=== PATIENT | female | born 1950 | race Caucasian/White ===

== ENCOUNTER 2021-03-06 17:18 | Emergency (ER) | payer OTHER ==
[2021-03-06] MEDS ORDERED: NA CHLORIDE 0.9% 1,000 ML ONE (18:29)
[2021-03-06 18:31] LABS: Urine Blood Trace-lysed (Negative); Urine Glucose Negative (Negative); Urine Protein Negative (Negative); Urine pH 6.5 (5.0-7.0)
[2021-03-06 18:46] LABS: Absolute Lymphocytes (CBC) 1.6 K/uL (0.7-4.9); Basophils % 0.5 % (0-1.3); Hematocrit 43.7 % (36.0-45.0); Lymphocytes % 21.8 % (15.3-44.8); MPV 8.9 fL (7.6-11.3); RBC Red Blood Cell Count 4.84 M/uL (3.86-4.86)
[2021-03-06 19:01] LABS: Albumin 3.5 g/dL (3.4-5.0); Bilirubin Direct 0.1 mg/dL (0-0.2); Bilirubin Total 0.5 mg/dL (0.2-1.0); Potassium 3.4 mmol/L (3.5-5.1); Protein, Total 7.5 g/dL (6.4-8.2)
--- NOTE | 2021-03-06 19:21 | RAD REPORT ---
EXAM DESCRIPTION: CT - Abdomen Pelvis W Contrast - 03/06/2021 6:56 pm CLINICAL HISTORY: ABD PAIN COMPARISON: CT imaging March 2019 TECHNIQUE: Biphasic, helical CT imaging of the abdomen and pelvis was performed following 100 ml non -ionic IV contrast. No oral contrast given. All CT scans are performed using dose optimization technique as appropriate and may include automated exposure control or mA/KV adjustment according to patient size. FINDINGS: No suspicious findings in the lung bases. The liver, spleen, and pancreas show no suspicious findings. Gallbladder and biliary tree are also wi thout suspicious finding. Symmetric renal function is seen with no hydronephrosis or suspicious renal mass. No pyelonephritis o r acute parenchymal process. A few small renal cysts are present with no suspicious characteristics o r significant interval changes. Partially filled urinary bladder shows no suspicious finding. No blad jaleel abnormalities. No adrenal abnormalities. Uterus and ovaries without suspicious finding. No gastric dilatation or wall thickening. No acute small bowel finding. Appendix is not well defined. No direct or indirect evidence for acute appendicitis. Patient has prominent diverticulosis. Patient has colon wall thickening involving the descending, and sigmoid portions of the colon. There is minimal exaggerated enhancement in cecum. Trace amount of st randing or edema seen in the adjacent fat. No mass lesions seen. Focal narrowing in the mid transvers e colon is believed to be a peristalsis affect rather than mass. This can be evaluated on follow-up b arium enema or colonoscopy. No free air or pneumatosis. No abnormal free fluid collection. No hernia, mass or bulky lymphadenop athy. No suspicious bony findings. IMPRESSION: Mild pancolitis pattern with a [id number]-[id number] component involving the distal descendin g and proximal sigmoid. No free air, abscess or surgically emergent component.
[2021-03-06] MEDS ORDERED: METRONIDAZOLE 500mg IVPB 500 MG/100 ML BAG IV ONE (20:40)
[2021-03-06] MEDS ORDERED: levoFLOXacin 750 MG TAB ONE (20:40)
--- NOTE | 2021-03-06 20:47 | EDPHYS ---
Physician Documentation [facility] Name: Shilpa Neville Age: 70 yrs Sex: Female : 1950 Arrival Date: 03/06/2021 Time: 17:19 Bed 13 Private MD: Joseph Chacon V ED Physician Franki Church HPI: 03/06 17:49 This 70 yrs old Female presents to ER via Ambulatory with complaints of jmm Fever, Diarrhea, Abdominal Pain. 17:49 The patient presents to the emergency department with diarrhea. Onset: The jmm symptoms/episode began/occurred gradually. Possible causes: antibiotics, macrolide, Zithromax. The symptoms are aggravated by nothing. The symptoms are alleviated by nothing. Associated signs and symptoms: Pertinent positives: abdominal pain, fever. The patient has not experienced similar symptoms in the past. Historical: - Allergies: 17:37 Gluten Protein; jd3 - Home Meds: 17:37 anastrozole oral oral [Active]; Trintellix 5 mg oral tab [Active]; jd3 benazepril-hydrochlorothiazide oral oral [Active]; trazodone Oral [Active]; melatonin Oral [Active]; - PMHx: 17:37 breast cancer; jd3 - PSHx: 17:37 Lumpectomy; Appendectomy; jd3 - Immunization history:: Adult Immunizations up to date. - Social history:: Smoking status: Patient denies any tobacco usage or history of. ROS: 17:49 Constitutional: Negative for fever, chills, and weight loss, Cardiovascular: Negative jmm for chest pain, palpitations, and edema, Respiratory: Negative for shortness of breath, cough, wheezing, and pleuritic chest pain. 17:49 Abdomen/GI: Positive for abdominal pain, diarrhea. 17:49 All other systems are negative. Exam: 17:49 Constitutional: This is a well developed, well nourished patient who is awake, alert, jmm and in no acute distress. Head/Face: atraumatic. Eyes: EOMI, no conjunctival erythema appreciated ENT: Moist Mucus Membranes Neck: Trachea midline, Supple Chest/axilla: Normal chest wall appearance and motion. Cardiovascular: Regular rate and rhythm. No edema appreciated Respiratory: Normal respirations, no respiratory distress appreciated 17:49 Back: Normal ROM Skin: General appearance color normal MS/ Extremity: Moves all extremities, no obvious deformities appreciated, no edema noted to the lower extremities Neuro: Awake and alert, normal gait Psych: Behavior is normal, Mood is normal, Patient is cooperative and pleasant 17:49 Abdomen/GI: Inspection: abdomen appears normal, Bowel sounds: normal, Palpation: soft, mild abdominal tenderness, in all quadrants. Vital Signs: 17:37 BP 154 / 77; Pulse 61; Resp 17 S; Temp 99.5(TE); Pulse Ox 98% on R/A; Weight 55.34 kg jd3 (R); Height 5 ft. 3 in. (160.02 cm) (R); Pain 4/10; 17:56 BP 149 / 66; Pulse 60; Resp 16; Pulse Ox 100% on R/A; vg1 20:29 BP 163 / 73; Pulse 66; Resp 14; Pulse Ox 100% ; vg1 21:00 BP 154 / 72; Pulse 68; Resp 16; Pulse Ox 100% on R/A; vg1 17:37 Body Mass Index 21.61 (55.34 kg, 160.02 cm) jd3 MDM: 17:[address] [facility] 20:04 Data reviewed: vital signs, nurses notes. Counseling: I had a detailed discussion with jennifer the patient and/or guardian regarding: the historical points, exam findings, and any diagnostic results supporting the discharge/admit diagnosis, lab results, radiology results, the need for outpatient follow up, to return to the emergency department if symptoms worsen or persist or if there are any questions or concerns that arise at home. ED course: Labs, ct imagings, recent abx use. Most likely c.diff. will treat with oral abx. Patient advised to follow up with pcp/gi for further evaluation. Patient is otherwise given strict return precautions. Patient understood and agrees with the plan of care. . 03/06 18:01 Order name: Basic Metabolic Panel; Complete Time: 19:[address] [facility] 03/06 18:01 Order name: CBC with Diff; Complete Time: 19:[address] [facility] 03/06 18:01 Order name: Hepatic Function; Complete Time: 19:[address] [facility] 03/06 18:01 Order name: Lipase; Complete Time: 19:[address] [facility] 03/06 18:01 Order name: CT Abd/Pelvis - IV Contrast Only; Complete Time: 19:[address] [facility] 03/06 18:30 Order name: Urine Dipstick-Ancillary; Complete Time: 18:46 [facility] 03/06 18:01 Order name: IV Saline Lock; Complete Time: 18:[address] [facility] 03/06 18:01 Order name: Labs collected and sent; Complete Time: 18:[address] [facility] 03/06 18:01 Order name: Urine Dipstick-Ancillary (obtain specimen); Complete Time: 18:[address] [facility] Administered Medications: 18:34 Drug: NS 0.9% 1000 ml Route: IV; Rate: 1 bolus; Site: left antecubital; vg1 19:30 Follow up: IV Status: Completed infusion; IV Intake: 1000ml vg1 20:21 Drug: LevaQUIN (levofloxacin) 750 mg Route: PO; vg1 21:00 Follow up: Response: No adverse reaction vg1 20:26 Drug: Flagyl (metroNIDAZOLE) 500 mg Volume: 100 ml; Route: IVPB; Rate: 200 ml/hr; vg1 Infused Over: 30 mins; Site: left antecubital; 21:00 Follow up: Response: No adverse reaction vg1 21:00 Follow up: IV Status: Completed infusion; IV Intake: 100ml vg1 Disposition: 03/06/21 20:46 Discharged to Home. Impression: Pancolitis. - Condition is Stable. - Discharge Instructions: Clostridium Difficile Infection. - Prescriptions for Flagyl 500 mg Oral Tablet - take 1 tablet by ORAL route every 6 hours for 10 days; 40 tablet. Levaquin 500 mg Oral Tablet - take 1 tablet by ORAL route once daily for 7 days; 7 tablet. - Medication Reconciliation Form, Thank You Letter, Antibiotic Education, Prescription Opioid Use form. - Follow up: Benoit Curry MD; When: 2 - 3 days; Reason: Recheck today's complaints, Continuance of care, Re-evaluation by your physician. - Notes: Please take probiotics such as Athletic Greens daily. Please send a stool sample to the lab for further evaluation. Please return to the ER if you develop increased pain, vomiting, or any other concerning symptoms. Signatures: Dispatcher [employer] [facility] Noé Caballero PA PA jmm Davies, Jonathon, RN RN Madonna Rosen RN RN vg1 Corrections: (The following items were deleted from the chart) 21:57 20:46 03/06/2021 20:46 Discharged to Home. Impression: Pancolitis. Condition is Stable. vg1 Forms are Medication Reconciliation Form, Thank You Letter, Antibiotic Education, Prescription Opioid Use. Follow up: Benoit Curry; When: 2 - 3 days; Reason: Recheck today's complaints, Continuance of care, Re-evaluation by your physician. jennifer
--- NOTE | 2021-03-06 20:47 | ER ---
Nurse's Notes [facility] Name: Shilpa Neville Age: 70 yrs Sex: Female : 1950 Arrival Date: 03/06/2021 Time: 17:19 Bed 13 Private MD: Joseph Chacon V Diagnosis: Pancolitis Presentation: 03/06 17:33 Chief complaint: Patient states: "N/V/D since Sunday. I was also having fever. Now I am jd3 still having diarrhea and all my virus symptoms gone, but I do have a history of diverticulosis.". Coronavirus screen: At this time, the client does not indicate any symptoms associated with coronavirus-19. Ebola Screen: Patient negative for fever greater than or equal to 101.5 degrees Fahrenheit, and additional compatible Ebola Virus Disease symptoms. Initial Sepsis Screen: Does the patient meet any 2 criteria? No. Patient's initial sepsis screen is negative. Does the patient have a suspected source of infection? No. Patient's initial sepsis screen is negative. Risk Assessment: Do you want to hurt yourself or someone else? Patient reports no desire to harm self or others. Onset of symptoms was February 28, 2021. 17:33 Method Of Arrival: Ambulatory [facility] 17:33 Acuity: DENISE 3 jd3 Historical: - Allergies: 17:37 Gluten Protein; jd3 - Home Meds: 17:37 anastrozole oral oral [Active]; Trintellix 5 mg oral tab [Active]; jd3 benazepril-hydrochlorothiazide oral oral [Active]; trazodone Oral [Active]; melatonin Oral [Active]; - PMHx: 17:37 breast cancer; jd3 - PSHx: 17:37 Lumpectomy; Appendectomy; jd3 - Immunization history:: Adult Immunizations up to date. - Social history:: Smoking status: Patient denies any tobacco usage or history of. Screenin:56 Abuse screen: Denies threats or abuse. Nutritional screening: No deficits noted. vg1 Tuberculosis screening: No symptoms or risk factors identified. Fall Risk No fall in past 12 months (0 pts). No secondary diagnosis (0 pts). IV access (20 points). Ambulatory Aid- None/Bed Rest/Nurse Assist (0 pts). Gait- Normal/Bed Rest/Wheelchair (0 pts) Mental Status- Oriented to own ability (0 pts). Total Callahan Fall Scale indicates No Risk (0-24 pts). Assessment: 17:55 General: Appears in no apparent distress. comfortable, Behavior is calm, cooperative. vg1 Pain: Complains of pain in right upper quadrant, left upper quadrant and right lower quadrant Pain currently is 4 out of 10 on a pain scale. Pain began about a week ago. Neuro: Level of Consciousness is awake, alert, obeys commands, Oriented to person, place, time, situation. Cardiovascular: Patient's skin is warm and dry. Respiratory: Airway is patent Respiratory effort is even, unlabored. GI: Abdomen is flat, non-distended, Bowel sounds present X 4 quads. Abdomen is tender to palpation in right upper quadrant, left upper quadrant and right lower quadrant Reports diarrhea. : No signs and/or symptoms were reported regarding the genitourinary system. EENT: No signs and/or symptoms were reported regarding the EENT system. Derm: Skin is intact, is healthy with good turgor. Musculoskeletal: Circulation, motion, and sensation intact. 19:10 Reassessment: Patient appears in no apparent distress at this time. No changes from vg1 previously documented assessment. Patient and/or family updated on plan of care and expected duration. Pain level reassessed. Patient is alert, oriented x 3, equal unlabored respirations, skin warm/dry/pink. 20:29 Reassessment: Patient appears in no apparent distress at this time. Patient and/or vg1 family updated on plan of care and expected duration. Pain level reassessed. Patient is alert, oriented x 3, equal unlabored respirations, skin warm/dry/pink. 21:56 Reassessment: Patient appears in no apparent distress at this time. Patient and/or vg1 family updated on plan of care and expected duration. Pain level reassessed. Patient is alert, oriented x 3, equal unlabored respirations, skin warm/dry/pink. Vital Signs: 17:37 BP 154 / 77; Pulse 61; Resp 17 S; Temp 99.5(TE); Pulse Ox 98% on R/A; Weight 55.34 kg jd3 (R); Height 5 ft. 3 in. (160.02 cm) (R); Pain 4/10; 17:56 BP 149 / 66; Pulse 60; Resp 16; Pulse Ox 100% on R/A; vg1 20:29 BP 163 / 73; Pulse 66; Resp 14; Pulse Ox 100% ; vg1 21:00 BP 154 / 72; Pulse 68; Resp 16; Pulse Ox 100% on R/A; vg1 17:37 Body Mass Index 21.61 (55.34 kg, 160.02 cm) jd3 ED Course: 17:19 Patient arrived in ED. ds1 17:20 Joseph Chacon MD is Private Physician. ds1 17:35 Triage completed. jd3 17:38 Arm band placed on. jd3 17:39 Noé Caballero PA is PHCP. jmm 17:39 Franki Church MD is Attending Physician. jmm 17:45 Madonna Mclain, RN is Primary Nurse. vg1 17:57 Patient has correct armband on for positive identification. Bed in low position. Call vg1 light in reach. Side rails up X 1. Adult w/ patient. 18:23 Initial lab(s) drawn, by me, sent to lab. Missed attempt(s): 20 gauge in left vg1 antecubital area. 18:31 Inserted saline lock: 20 gauge in left antecubital area, using aseptic technique. dh3 18:56 CT Abd/Pelvis - IV Contrast Only In Process Unspecified. EDMS 19:19 Primary Nurse role handed off by Madonna Mclain, RN mw2 19:23 Madonna Mclain, RN is Primary Nurse. vg1 20:45 Benoit Curry MD is Referral Physician. [facility] 21:56 No provider procedures requiring assistance completed. IV discontinued, intact, vg1 bleeding controlled, No redness/swelling at site. Pressure dressing applied. Administered Medications: 18:34 Drug: NS 0.9% 1000 ml Route: IV; Rate: 1 bolus; Site: left antecubital; vg1 19:30 Follow up: IV Status: Completed infusion; IV Intake: 1000ml vg1 20:21 Drug: LevaQUIN (levofloxacin) 750 mg Route: PO; vg1 21:00 Follow up: Response: No adverse reaction vg1 20:26 Drug: Flagyl (metroNIDAZOLE) 500 mg Volume: 100 ml; Route: IVPB; Rate: 200 ml/hr; vg1 Infused Over: 30 mins; Site: left antecubital; 21:00 Follow up: Response: No adverse reaction vg1 21:00 Follow up: IV Status: Completed infusion; IV Intake: 100ml vg1 Intake: 19:30 IV: 1000ml; Total: 1000ml. vg1 21:00 IV: 100ml; Total: 1100ml. vg1 Outcome: 20:46 Discharge ordered by . jennifer 21:56 Discharged to home ambulatory. vg1 21:56 Condition: stable 21:56 Discharge instructions given to patient, Instructed on discharge instructions, follow up and referral plans. medication usage, Demonstrated understanding of instructions, follow-up care, medications, Prescriptions given X 2. 21:57 Patient left the ED. vg1 Signatures: Dispatcher [employer] [facility] Noé Caballero PA PA jmm Sanford, Demi ds1 Karrie Rubin 3 Vernon Christensen RN RN jd3 Sylvia Tadeo2 Madonna Mclain RN RN vg1
[2021-03-06 22:06] VITALS: TEMP 99.5
[2021-03-06 22:08] VITALS: O2SAT 100
[2021-03-06 22:10] VITALS: BP 154/72
== END 2021-03-06 21:57 | disposition home or self-care (01) ==
LOC: ER 17:18
DX: K51.00 Ulcerative (chronic) pancolitis without complications (principal); Z85.3 Personal history of malignant neoplasm of breast; Z91.02 Food additives allergy status
CPT/HCPCS: 85025; 80048; 36415; 82565; 80076; 81003; 83690; 74177; Q9967; J7030